=== PATIENT | female | born 2000 | race Hispanic/Latino ===

== ENCOUNTER 2023-10-27 16:14 | Emergency (ER) | payer OTHER ==
[~2023-10-27] VITALS: Ht 160 cm; Wt 90.7 kg
[2023-10-27 16:47] LABS: APPEARANCE,URINE CLEAR (CLEAR); BILIRUBIN,URINE NEGATIVE (NEGATIVE); COLOR,URINE YELLOW (YELLOW); GLUCOSE, URINE (UA) NEGATIVE (NEGATIVE); KETONES,URINE NEGATIVE (NEGATIVE); LEUKOCYTE ESTERASE ,URINE 75 Leu/uL (NEGATIVE); NITRATE,URINE NEGATIVE (NEGATIVE); OCCULT BLOOD,URINE NEGATIVE (NEGATIVE); PH,URINE 5.5 (5.0-8.0); PROTEIN,URINE 10 mg/dL (NEGATIVE); UROBILINOGEN,URINE 0.2 mg/dL (0.2-1.0)
[2023-10-27 16:48] LABS: ADD UA MICROSCOPIC YES
[2023-10-27 16:49] LABS: HCG,QUALITATIVE URINE NEGATIVE (NEGATIVE)
[2023-10-27 16:51] LABS: BACTERIA,URINE RARE /HPF (None Seen); MUCUS,URINE RARE LPF (None Seen); SQUAMOUS EPITHELIAL CELL,UR FEW /HPF (0-2)
[2023-10-27] MEDS: ACETAMINOPHEN 500 MG TABLET PO ONE (16:56)
[2023-10-27 16:58] LABS: BASOPHILS # (AUTO) 0.03 K/uL (0.00-0.20); BASOPHILS % (AUTO) 0.2 % (0.0-5.0); EOSINOPHILS # (AUTO) 0.22 K/uL (0.00-0.70); EOSINOPHILS % (AUTO) 1.8 % (0.0-8.0); HEMATOCRIT 42.3 % (36-48); IMMATURE GRANULOCYTE ABSOLUTE 0.05 K/uL (0-1); LYMPHOCYTES # (AUTO) 3.1 K/uL (1.0-4.8); LYMPHOCYTES % (AUTO) 24.5 % (21.0-51.0); MEAN CORPUSCULAR HGB CONC 35.2 g/dL (32.0-36.0); MEAN CORPUSCULAR VOLUME 87.9 fL (79-99); MONOCYTES # (AUTO) 0.5 K/uL (0.1-1.0); MONOCYTES % (AUTO) 3.9 % (3.0-13.0); NEUTROPHILS # (AUTO) 8.6 K/uL (1.8-7.7); NEUTROPHILS % (AUTO) 69.2 % (40.0-77.0); PLATELET COUNT (AUTO) 377 K/uL (130-400); RED BLOOD CELL COUNT(AUTO) 4.81 MIL/uL (4.00-5.50); RED CELL DISTRIBUTION WIDTH 12.4 % (11.0-15.5); WHITE BLOOD COUNT (AUTO) 12.5 K/uL (4.8-10.8)
[2023-10-27 17:06] LABS: CREATININE 0.6 mg/dL (0.5-1.0)
[2023-10-27 17:11] LABS: ALBUMIN 3.8 g/dL (3.5-5.0); BILIRUBIN,TOTAL 0.6 mg/dL (0.2-1.0); TOTAL PROTEIN, SERUM 8.2 g/dL (6.0-8.3)
[2023-10-27] MEDS ORDERED: IBUP-2077 PO (18:24)
[2023-10-27 18:26] VITALS: BP 121/74; PULSE 84; RESP 20; O2SAT 97
[2023-10-28] MEDS ORDERED: CEPH500B PO (05:14)
== END 2023-10-27 18:31 | disposition home or self-care (01) ==
LOC: EDH 16:14
DX: R10.2 Pelvic and perineal pain (principal); Z90.49 Acquired absence of other specified parts of digestive tract
CPT/HCPCS: 36415; 76856; 80053; 81001; 81025; 85025; 87086

== ENCOUNTER 2023-10-28 04:24 | Emergency (ER) | payer OTHER ==
[~2023-10-28] VITALS: Ht 160 cm; Wt 90.7 kg
[~2023-10-28 04:24] MED LIST: IBUP-2077 PO
[2023-10-28] MEDS: KETOROLAC 30MG VIAL (30MG/ML) IM ONE (05:01)
[2023-10-28 05:02] LABS: HCG,QUALITATIVE URINE NEGATIVE (NEGATIVE)
[2023-10-28 05:09] LABS: AMPHET/METH SCREEN,URINE NEGATIVE (NEGATIVE); BARBITURATE SCREEN, URINE NEGATIVE (NEGATIVE); BENZODIAZEPINES SCREEN,URINE NEGATIVE (NEGATIVE); CANNABINOID SCREEN,URINE NEGATIVE (NEGATIVE); COCAINE SCREEN,URINE NEGATIVE (NEGATIVE); OPIATE SCREEN,URINE NEGATIVE (NEGATIVE); PHENCYCLIDINE SCREEN,URINE NEGATIVE (NEGATIVE)
[2023-10-28] MEDS ORDERED: CEPH500B PO (05:14)
[2023-10-28] MEDS: CEFTRIAXONE 1G VIAL IM ONE (05:19)
[2023-10-28 05:30] VITALS: BP 129/76; PULSE 86; RESP 18; O2SAT 100
== END 2023-10-28 05:28 | disposition home or self-care (01) ==
LOC: EDH 04:24
DX: N39.0 Urinary tract infection, site not specified (principal); Z90.49 Acquired absence of other specified parts of digestive tract; Z79.899 Other long term (current) drug therapy
CPT/HCPCS: 99284; 80305; 81025; 96372 ×2; J0696; J1885